=== PATIENT | female | born 1970 | race Caucasian/White ===

== ENCOUNTER 2019-06-20 10:58 | Emergency (ER) | payer MEDICAID ==
[~2019-06-20] VITALS: Ht 165.1 cm; Wt 79.4 kg
[2019-06-20] MEDS ORDERED: FAMOTIDINE 20 MG TABLET. PO ONE (11:18)
[2019-06-20] MEDS ORDERED: DEXAMETHASONE SOD PHOS 20 MG/5 ML VIAL. IM ONE (11:18)
[2019-06-20] MEDS ORDERED: CETIRIZINE HCL 10 MG TABLET. PO STA (11:19)
[2019-06-20 11:20] VITALS: BP 142/71
[2019-06-20] MEDS ORDERED: CETI10TA22 PO (11:23)
[2019-06-20] MEDS ORDERED: PRED-220 PO (11:23)
[2019-06-20] MEDS ORDERED: FAMO20TA5 PO (11:23)
--- NOTE | 2019-06-20 11:23 | PHYS DOC ---
Past Medical History Past Medical History: Bipolar Additional Past Medical Histor: manic depression, ptsd, adhd, Past Surgical History: Tonsillectomy, Tubal ligation, Other Additional Past Surgical Histo: left knee, rt arm Alcohol Use: None Drug Use: Marijuana Adult General Chief Complaint Chief Complaint: SKIN RASH/ABSCESS HPI HPI Patient is a 48 year old female, medical history who presents to the ED today complaining over poison valerie rash that began 6 days ago. Patient states she has tried "everything" OTC with no relief. Review of Systems Review of Systems Constitutional: Denies fever or chills [] Musculoskeletal: Denies back pain or joint pain [] Integument: Reports rash Neurologic: Denies headache, focal weakness or sensory changes [] All other systems were reviewed and found to be within normal limits, except as documented in this note. Allergies Allergies Allergies Coded Allergies Type Severity Reaction Last Updated Verified No Known Drug Allergies 09/22/15 No Physical Exam Physical Exam Constitutional: Well developed, well nourished, no acute distress, non-toxic appearance. [] Skin: Warm, dry, mild amount of erythematous rash throughout patient's body including face. Back: No tenderness, no CVA tenderness. [] Extremities: No tenderness, no cyanosis, no clubbing, ROM intact, no edema. [] Neurologic: Alert and oriented X 3, normal motor function, normal sensory function, no focal deficits noted. [] Psychologic: Affect normal, judgement normal, mood normal. [] EKG EKG [] Radiology/Procedures Radiology/Procedures [] Course & Med Decision Making Course & Med Decision Making Pertinent Labs and Imaging studies reviewed. (See chart for details) This is a 48-year-old female patient who presents to the ED today with poison valerie rash throughout her body. She has tried [id number] remedies with no relief. Will be given Decadron, Zyrtec and Pepcid in the ED. Will be discharged with prednisone, Benadryl and Pepcid. Provided momd teacher for follow-up as needed. Dragon Disclaimer Dragon Disclaimer This electronic medical record was generated, in whole or in part, using a voice recognition dictation system. Departure Departure Impression: Primary Impression: Contact dermatitis due to poison valerie Disposition: HOME, SELF-CARE Condition: STABLE Referrals: NO PCP (PCP) KALEIGHNATANAEL JADE MDu p in two weeks Patient Instructions: Contact Dermatitis, [id number] Additional Instructions: You were evaluated in the emergency room with contact dermatitis from poison valerie, take the prescribed medications as ordered. Follow-up with the provided momd teacher in 2 weeks. Scripts Prednisone (PREDNISONE ) 10 Mg Tablet 10 MG PO UD for PREDNISONE TAPER, #39 TAB 0 Refills Take 3 tablets by mouth twice a day for 3 days, then take 2 tablets by mouth twice a day for 3 days, then take 1 tablet by mouth twice a day for 3 days, then take 1 tablet by mouth daily x 3 days, then stop. Prov: ANUSHA VILLASEÑOR APRN 06/20/19 Cetirizine Hcl (ZYRTEC) 10 Mg Tablet 1 TAB PO DAILY, #30 TAB 0 Refills Prov: ANUSHA VILLASEÑOR APRN 06/20/19 Famotidine (FAMOTIDINE) 20 Mg Tablet 20 MG PO DAILY, #7 TAB Prov: ANUSHA VILLASEÑOR APRN 06/20/19 ANUSHA VILLASEÑOR APRN Jun 20, 2019 11:23
== END 2019-06-20 11:55 | disposition home or self-care (01) ==
LOC: ER 10:58
DX: L23.7 Allergic contact dermatitis due to plants, except food (principal); F31.9 Bipolar disorder, unspecified
CPT/HCPCS: 96372; 99283; J1100

== ENCOUNTER 2019-09-11 09:43 | Emergency (ER) | payer MEDICAID ==
[~2019-09-11] VITALS: Ht 165.1 cm; Wt 70.3 kg
[~2019-09-11 09:43] MED LIST: CETI10TA22 PO; FAMO20TA5 PO; PRED-220 PO
[2019-09-11 10:22] VITALS: BP 113/63
[2019-09-11] MEDS ORDERED: IBUPROFEN 200 MG TABLET. PO ONE (10:30)
[2019-09-11] MEDS ORDERED: BACITRACIN TOPICAL OINT PACKET. TP ONE (10:30)
--- NOTE | 2019-09-11 10:35 | PHYS DOC ---
Past Medical History Past Medical History: No Pertinent History Additional Past Medical Histor: manic depression, ptsd, adhd, Past Surgical History: No Surgical History Additional Past Surgical Histo: left knee, rt arm Alcohol Use: None Drug Use: None Adult General Chief Complaint Chief Complaint: KNEE INJURY HPI HPI Patient is a 49 year old female who presents with right knee pain/injury. Patient states she was moving a metal aluminum window when she dropped a metal window frame on her right knee. Patient has small abrasion over anterior superior knee. She reports pain with ambulation and movement. No medications or therapy sticking prior to ED arrival. No other symptoms or complaints. Patient states her tetanus is up-to-date.[] Review of Systems Review of Systems Review symptoms as per history of present illness. All other review symptoms are negative. All other systems were reviewed and found to be within normal limits, except as documented in this note. Current Medications Current Medications Current Medications Medications (Trade) Dose Ordered Sig/Derek Start Time Stop Time Status Last Admin Dose Admin Bacitracin (Bacitracin Zinc Oint Pkt) 1 pkt 1X ONCE 09/11/19 10:30 09/11/19 10:31 DC 09/11/19 10:31 1 PKT Ibuprofen (Motrin) 600 mg 1X ONCE 09/11/19 10:30 09/11/19 10:31 DC 09/11/19 10:31 600 MG Allergies Allergies Allergies Coded Allergies Type Severity Reaction Last Updated Verified No Known Drug Allergies 09/22/15 No Physical Exam Physical Exam Constitutional: Well developed, well nourished, no acute distress, non-toxic appearance. [] HENT: Normocephalic, atraumatic, bilateral external ears normal, oropharynx moist, no oral exudates, nose normal. [] Eyes: PERRLA, EOMI, conjunctiva normal, no discharge. [] Neck: Normal range of motion, no tenderness, supple, no stridor. [] [] Extremities: R Knee, 2 cm superficial abrasion over anterior knee contusion. No joint effusion, deformity. Range of motion intact.. [] Neurologic: Alert and oriented X 3, normal motor function, normal sensory function, no focal deficits noted. [] Psychologic: Affect normal, judgement normal, mood normal. [] Current Patient Data Vital Signs Vital Signs Date Time Temp Pulse Resp B/P (MAP) Pulse Ox O2 Delivery O2 Flow Rate FiO2 10/30/19 10:22 98.5 87 20 113/63 (80) 97 Room Air 98.5 EKG EKG [] Radiology/Procedures Radiology/Procedures [] Course & Med Decision Making Course & Med Decision Making Pertinent Labs and Imaging studies reviewed. (See chart for details) [] Dragon Disclaimer Dragon Disclaimer This electronic medical record was generated, in whole or in part, using a voice recognition dictation system. Departure Departure Impression: Primary Impression: Abrasion Additional Impression: Contusion of right knee Disposition: 01 HOME/RESIDENCE PRIOR TO ADM Condition: STABLE Patient Instructions: Contusion, Abrasion, [id number] Additional Instructions: Take ibuprofen for pain, apply topical antibiotic, wear compression wrap for comfort and use crutches as needed for additional pain relief. Problem Qualifiers TODD JOHNSTON DO Sep 11, 2019 10:35
== END 2019-09-11 10:30 | disposition home or self-care (01) ==
LOC: ER 09:43
DX: S80.01XA Contusion of right knee, initial encounter (principal); W20.8XXA Other cause of strike by thrown, projected or falling object, initial encounter; Y93.89 Activity, other specified; Y92.89 Other specified places as the place of occurrence of the external cause; Y99.8 Other external cause status
CPT/HCPCS: 99283